=== PATIENT | male | born 1945 | race Caucasian/White ===

== ENCOUNTER 2024-05-09 18:49 | Emergency (ER) | payer MEDICARE, OTHER ==
[2024-05-09 19:17] LABS: BASOPHILS % (AUTO) 0.2 %; EOSINOPHILS # (AUTO) 0.1 10^3/uL (0.0-0.7); HCT - HEMATOCRIT 45.5 % (42.0-52.0); HGB - HEMOGLOBIN 15.1 g/dL (14.0-18.0); LYMPHOCYTES # (AUTO) 1.5 10^3/uL (1.5-3.5); LYMPHOCYTES % (AUTO) 29.5 %; MEAN CORPUSCULAR HEMOGLOBIN 32.4 pg (27.0-31.0); MEAN CORPUSCULAR HGB CONC 33.2 g/dL (32.0-36.0); MEAN CORPUSCULAR VOLUME 97.6 fL (80.0-94.0); MONOCYTES # (AUTO) 0.5 10^3/uL (0.0-1.0); MONOCYTES % (AUTO) 10.4 %; NEUTROPHILS # (AUTO) 2.9 10^3/uL (1.5-6.6); NEUTROPHILS % (AUTO) 57.5 %; PLT - PLATELET COUNT 171 10^3/uL (130-450); RED BLOOD COUNT 4.66 10^6/uL (4.70-6.10); WHITE BLOOD COUNT 5.1 x10^3/uL (4.8-10.8)
--- NOTE | 2024-05-09 19:20 | ED Physician Documentation ---
PD HPI CHEST PAIN - Stated complaint Stated Complaint: CHEST PX - Chief complaint Chief Complaint: Cardiac - History obtained from History obtained from: Patient - History of Present Illness Timing - onset: Last night Pain level max: 3 Pain level now: 0 Quality: Sharp Location: Left chest Radiation: No: Jaw, Neck, Back, Abdominal, Left upper extremity, Right upper extremity Worsened by: Movement, Palpation Associated symptoms: No: Shortness of air, Diaphoresis, Nausea, Vomiting, Feeling faint / dizzy, General Weakness, Palpitations, Cough Recently seen: Other (Patient did have a recent episode of atrial fibrillation after colonoscopy about 2 weeks ago.) - Additional information Additional information: Patient is an 78-year-old male who presents to the emergency department with chest pain last night. He states is on the left side of his chest and was very sharp in nature. [place] like it was on the anterior aspect of the chest. Worse with palpation and movement. Nothing made it better. Chest pain had resolved today. He told his daughter about his symptoms and recommended he come here for evaluation. Patient has no history of coronary artery disease. Review of Systems Constitutional: denies: Fever, Chills Nose: denies: Rhinorrhea / runny nose, Congestion Throat: denies: Sore throat Cardiac: denies: Palpitations Respiratory: denies: Dyspnea, Cough, Wheezing GI: denies: Abdominal Swelling, Nausea, Vomiting Skin: denies: Rash Musculoskeletal: denies: Neck pain, Back pain Neurologic: denies: Headache PD PAST MEDICAL HISTORY - Past Medical History Past Medical History: Yes Cardiovascular: Hypertension, High cholesterol, Atrial fibrillation : Benign prostate hypertrophy - Past Surgical History Past Surgical History: Yes General: Appendectomy - Present Medications Home Medications: Ambulatory Orders Medication Instructions Recorded Confirmed Apixaban [Eliquis] 5 mg PO BID 05/09/24 05/09/24 Atorvastatin Calcium 40 mg PO DAILY 05/09/24 05/09/24 Metoprolol Succinate [Kapspargo 2 mg PO DAILY 05/09/24 05/09/24 Sprinkle] Tamsulosin [Flomax] 1 cap PO DAILY 05/09/24 05/09/24 hydroCHLOROthiazide [Hydrodiuril] 12.5 mg PO DAILY 05/09/24 05/09/24 - Allergies Allergies/Adverse Reactions: Allergies Allergy/AdvReac Type Severity Reaction Status Date / Time No Known Drug Allergies Allergy Verified 09/24/24 19:18 - Social History Does the pt smoke?: No Smoking Status: Never smoker Does the pt drink ETOH?: Yes ETOH Use: Wine Does the pt have substance abuse?: No PD ED PE NORMAL - Vitals Vital signs reviewed: Yes - General General: Alert and oriented X 3, No acute distress - HEENT HEENT: PERRL - Neck Neck: Supple, no meningeal sign - Cardiac Cardiac: RRR, Strong equal pulses - Respiratory Respiratory: No respiratory distress, Clear bilaterally - Abdomen Abdomen: Soft, Non tender, Non distended - Derm Derm: Warm and dry - Extremities Extremities: No edema, No calf tenderness / cord - Neuro Neuro: Alert and oriented X 3 - Psych Psych: Normal mood, Normal affect Results - Vitals Vitals: Vital Signs - 24 hr 05/09/24 05/09/24 19:04 20:00 Temperature 36.3 C L Heart Rate 54 L 56 L Respiratory 18 16 Rate Blood Pressure 128/74 110/61 O2 Saturation 97 96 Oxygen O2 Source Room air - EKG (time done) 1855 EKG releavant findings:: EKG personally interpreted by author of this note. Relevant findings are: Rate: Rate (enter#) (53) Rhythm: NSR [place]: Normal Intervals: Prolonged PA QRS: Normal Ischemia: Normal ST segments - Labs Labs: Laboratory Tests 05/09/24 05/09/24 19:09 19:09 WBC 5.1 RBC 4.66 L Hgb 15.1 Hct 45.5 MCV 97.6 H MCH 32.4 H MCHC 33.2 RDW 13.0 Plt Count 171 MPV 9.0 Neut # (Auto) 2.9 Lymph # (Auto) 1.5 [place] # (Auto) 0.5 Eos # (Auto) 0.1 Baso # (Auto) 0.0 Absolute Nucleated RBC 0.00 Nucleated RBC % 0.0 Sodium 138 Potassium 3.5 Chloride 102 Carbon Dioxide 30 Anion Gap 6.0 BUN 20 Creatinine 1.1 Estimated GFR (MDRD) 64 L Glucose 109 H Calcium 9.5 Total Bilirubin 0.5 AST 19 ALT 15 Alkaline Phosphatase 45 Troponin I High Sens 9.5 Total Protein 6.3 L Albumin 4.1 Globulin 2.2 Albumin/Globulin Ratio 1.9 Lipase 24 - Rads (name of study) cxr Relevant Findings:: Final report received, See rad report PD Medical Decision Making - ED course Complexity details: reviewed results, re-evaluated patient, considered differential (No ST elevation OR, no aortic dissection, no PE, no tension pneumothorax, no aortic aneurysm), d/w patient ED course: 78-year-old male with sharp left-sided chest pain last night. Reproducible by palpation. Asymptomatic currently. No acute findings on EKG, chest x-ray or laboratory testing. Negative high sensitive troponin after more than 12 hours had elapsed from his symptoms. No evidence of acute coronary syndrome at this time. Recommend that he follow-up with his doctor for cardiac stress test and further evaluation. Patient counseled regarding signs and symptoms for which I believe and urgent re-evaluation would be necessary. Patient with good understanding of and agreement to plan and is comfortable going home at this time This document was made in part using voice recognition software. While efforts a re made to proofread this document, sound alike and grammatical errors may occur. Departure - Departure Disposition: 01 Home, Self Care Clinical Impression: Chest pain Qualifiers: Chest pain type: unspecified Qualified Code(s): R07.9 - Chest pain, unspecified Condition: Good Instructions: ED Chest Pain Atypical Unkn Cause Follow-Up: Anil Byrne MD [Primary Care Provider] - Within 1 week Comments: Your heart tests are normal today. Please follow-up with your doctor for further care. Please return if you worsen. Your EKG, chest x-ray and l aboratory testing did not show any acute abnormalities. It is recommended that you have a cardiac stress test with your doctor. Forms: PCP List Discharge Date/Time: 05/09/24 20:11
[2024-05-09 19:34] LABS: ALBUMIN 4.1 g/dL (3.2-5.5); ALBUMIN/GLOBULIN RATIO 1.9 (1.0-2.2); BILIRUBIN,TOTAL 0.5 mg/dL (0.2-1.0); CALCIUM 9.5 mg/dL (8.5-10.3); CREATININE 1.1 mg/dL (0.6-1.3); POTASSIUM 3.5 mmol/L (3.5-4.5); TOTAL PROTEIN 6.3 g/dL (6.4-8.9)
[2024-05-09 19:37] LABS: TROPONIN I HIGH SENSITIVITY 9.5 ng/L (2.3-19.7)
--- NOTE | 2024-05-09 19:46 | XRAY Report ---
PROCEDURE: Chest 1V INDICATIONS: Chest Pain TECHNIQUE: One view of the chest was acquired. COMPARISON: None. FINDINGS: Surgical changes and devices: None. Lungs and pleura: No dense consolidation or pleural effusion. Mediastinum: Normal heart size Bones and chest wall: Degenerative changes IMPRESSION: Limited single view radiograph without acute abnormality. Reviewed by: Jesus Zacarias MD on 05/09/2024 7:44 PM PDT Approved by: Jesus Zacarias MD on 05/09/2024 7:44 PM PDT Station ID: [id number]
[2024-05-09 20:17] VITALS: BP 110/61; O2SAT 96
== END 2024-05-09 20:11 | disposition home or self-care (01) ==
LOC: ED 18:49
DX: R07.9 Chest pain, unspecified (principal); I10 Essential (primary) hypertension; I48.91 Unspecified atrial fibrillation; E78.00 Pure hypercholesterolemia, unspecified; Z79.01 Long term (current) use of anticoagulants; Z79.899 Other long term (current) drug therapy
CPT/HCPCS: 36415; 80053; 83690; 84484; 85025; 93005; 99283; 99284